=== PATIENT | female | born 1985 | race Caucasian/White ===

== ENCOUNTER 2023-05-27 07:44 | Outpatient (CLI) | payer BC, SELFPAY ==
--- NOTE | ~2023-05-27 | XR_ITS ---
XR chest 2V DATE: 05/27/2023 08:06 INDICATION: Suspected exposure to tuberculosis TECHNIQUE: 2 views COMPARISON: None FINDINGS: Normal heart size. No hilar or mediastinal enlargement. No pulmonary infiltrate or consol idation, pulmonary vascular congestion or pleural effusion or pneumothorax. IMPRESSION: No active cardiopulmonary disease Reviewed, dictated and finalized at location B. S SPECIALIST
== END 2023-05-27 07:45 | disposition home or self-care (01) ==
PROVIDERS: PCP Internal Medicine; Visit Provider Internal Medicine
DX: Z20.1 Contact with and (suspected) exposure to tuberculosis (principal)
CPT/HCPCS: 71046

== ENCOUNTER 2024-10-17 10:10 | Outpatient (CLI) | payer OTHER, SELFPAY ==
--- NOTE | ~2024-10-17 | XR_ITS ---
XR shoulder LT min 2V 10/17/2024 10:38 Indication: Left shoulder pain Procedure: 4 views left shoulder Comparison: No prior studies for comparison. Findings: No fracture, subluxation or dislocation. No significant soft tissue abnormality. No foreign bodies. Impression: 1: No significant bone or joint abnormality. Reviewed, dictated and finalized at location A. Impression: 1: No significant bone or joint abnormality.
--- OUTSIDE RECORDS SUMMARY | 2024-10-17 10:22 | XMS_ITS | Continuity of Care Document ---
Author Organization [email or web address], [facility] [address] Address [address] [place] [address] Assessment No assessment recorded. Plan of Treatment Reminders Order Date Submit Date Provider Last Modified By Organization Details Last Modified Time Details Appointments Any 30 025 09:15AM DWAYNE Templeton Not available Not available Not available Lab None record ed. Referral None record ed. Procedures None record ed. Surgeries None record ed. Imaging XR, should er, 2 or more view 025 10/18/19 25 [facility], [address], [place], [address], 10/17/2024 11:05:29 Medication Orders None record ed. Patient TargetsNo targets recorded. Patient Instructions Encounter Date Encounter Id Patient Instructions Last Modified By Organization Details Last Modified Time 10/17/2024 [id number] Continue to use rest, ice, and otc tylenol/advil for discomfort. Rest shoulder and arm as discussed. Avoid lifting heavy objects. Herb [email or web address] Not available 10/17/2024 10:52:06 Patient wanted t o wait to see ortho, will review xray results first, then order referral or additional imaging as discussed in office. [email or web address] Not available 10/17/2024 10:52:42 Reason for Referral None Reported. Problems Name Problem SNOMED Code Status Onset Date Resolution Date Notes Provider Name and Address Organization Details Recorded Time Abscess 540683846 Completed 05/27/2023 GRIS Eid, [place] [employer] [facility] [email or web address] 01/12/202 4 13:28:52 Low back pain 293635364 Completed 05/27/2023 Rola lyn RMA null, [place] [facility] 4 13:29:08 Vitamin D deficienc y 42198093 Active 2021 Rola Peña an, RMA null, [place] [facility] 4 13:29:23 Migraine 15038083 Active 2020 Rola Peña an, RMA null, [place] [facility] 4 13:29:21 Foot pain 31259168 Completed 05/27/2023 Rola Peña an, RMA null, [place] [facility] 4 13:28:58 Anxiety 94617164 Active 2020 Rola Peña an, RMA null, [place] [facility] 4 13:28:55 Skin lesion 15722902 Completed 05/27/2023 Rola Peña an, RMA null, [place] [facility] 4 13:29:10 Insect bite reaction 980675469 Completed 202205/27/2023 Rola lyn, RMA null, [place] [facility] 4 13:29:01 Pain of left shoulder joint 408571574778 67968 Completed 202205/27/2023 DWAYNE Templeton [address], [address], [address], [facility] 5 10:35:17 Pain of left shoulder joint 038724906061 54512 Active 2024 DWAYNE Templeton [address], [place], [address], [facility] 5 10:35:17 Plain X-ray result abnormal 075750485 Active 2024 DWAYNE Templeton [address], [place], [address] [place] [address] [facility] [employer] 5 10:33:17 Problem Notes None recorded. Medical Equipment None Reported. Allergies Allergen ID Allergen Name Allergen Category Reaction Reaction Severity Criticality Documentation Date Start Date Code Code System Note Provider Name and Address Organization Details Recorded Time 51951 Substance with sulfonami de structure and antibacte rial mechanism of action (substanc e) medicatio n Not available Not available Not available 07/14/2022 14347 8003 SNOMED Not Available [facility] 3 06:49:33 Medications Name Sig Start Date Stop Date Status Note LastModified by Organization Details LastModified Time amoxicillin 500 mg capsule Take 1 capsule every 8 hours by oral route for 7 days. 09/20 completed Not Available Not Available Not Available azithromyci n 250 mg tablet Take 2 TABLET EVERY DAY by oral route for 1 day. then 1 tab a day for 4 days 08/03 completed Not Available Not Available Not Available ibuprofen 800 mg tablet Take 1 tablet 3 times a day by oral route. active Not Available Not Available No t Available Keflex 500 mg capsule Take 1 capsule 4 times a day by oral route for 7 days. 07/24 completed Not Available Not Available Not Available Tubersol 5 tub. unit/0.1 mL intradermal injection solution Inject 0.1 mL by intraderm al route. 09/18 completed Not Available Not Available Not Available sumatriptan 50 mg tablet Take 1 tablet by oral route at earliest onset of headache may repeat in 2 hours but no more than two in 24 hrs 07/30 completed Not Available Not Available Not Available sulfamethox azole 800 mg-trimetho prim 160 mg tablet Take 1 tablet every 12 hours by oral route. active Not Available Not Available No t Available lorazepam 0.5 mg tablet Take 1 tablet twice a day by oral route as needed. 07/30 completed Not Available Not Available Not Available ergocalcife rol (vitamin D2) 1,250 mcg (50,000 unit) capsule Take 1 capsule every week by oral route. 09/18 completed Not Available Not Available Not Available Ubrelvy 50 mg tablet TAKE 1 TAB BY MOUTH AT HEADACHE ONSETAS NEEDED,MA Y REPEAT IN 2 HRS IF PAIN PERSISTS. MAX 4 TAB/24 HRS active Not Available Not Available No t Available Vitals Date Recorded Body height Body mass index (BMI) Body weight Body temperature Respiratory rate Heart rate Oxygen saturation Oxygen saturation in Arterial blood by Pulse oximetry Systolic blood pressure Diastolic blood pressure Provider Name and Address Organization Details Last Updated DateTime 5 162.56 cm 31.9 kg/m2 65994.1 8 g 97.8 [degF] 16 /min 84 /min 98 % 98 % 148 mm[Hg] 72 mm[Hg] Rosemary Olguin [place] [email or web address] 5 10:22:14 Social History Question Answer Notes LastModified by [employer] Details LastModified Time Tobacco Smoking Status Never Smoker Not Available [facility] 07/14/2022 06:41:48 What Is Your Level Of Caffeine Consumption? Moderate [id number] Information not available 07/14/2022 How Much Tobacco Do You Chew? None [id number] Information not available 07/14/2022 In The 14 Days Before Symptom Onset, Have You Had Close Contact With A Laboratory-confirm ed COVID-19 While That Case Was Ill? No [id number] Information not available 07/14/2022 In The 14 Days Before Symptom Onset, Have You Had Close Contact With A Person Who Is Under Investigation For COVID-19 While That Person Was Ill? No [id number] Information not available 07/14/2022 Which Illicit Or Recreational Drugs Have You Used? None [id number] Information not available 07/14/2022 Sex: Female Functional Status Question Answer Note LastModified by [employer] Details LastModified Time What is your level of alcohol consumption? Occasional [id number] Information not available 07/14/2022 Do you or have you ever used smokeless tobacco? 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 Never used electronic cigarettes [id number] Information not available 07/14/2022 Mental Status None recorded. Family History Relationship Description Onset Age of this Age Resolved Age Notes LastModified by Organization Details LastModified Time Mother Hypertensive disorder [id number] Not available 07/14/2022 06:42:11 Mother Diabetes mellitus [id number] Not available 07/14/2022 06:42:11 Mother Asthma [id number] Not available 07/14/2022 06:42:11 Mother Osteoporosis MIGRATION.0 30 [id number] Not available 07/14/2022 06:42:11 Medical History No medical history recorded. Gynecological HistoryNo gynecological history recorded. Obstetrics History GPAL:G 0 P 0 0 0 0 Immunizations Vaccine Type Date Status Note Provider Nam e and Address Organization Details Recorded Time TST-PPD intradermal 4 completed GRIS Wilson, [place] - [facility] [employer] [facility] 05/27/2023 13:31:06 Influenza, split virus, quadrivalent, preservative 0 completed Not Available [facility] 07/14/2022 06:49:23 Influenza, split virus, quadrivalent, PF 2 completed Not Available [facility] 07/14/2022 06:49:23 Influenza, split virus, quadrivalent, PF 1 completed Not Available [facility] 07/14/2022 06:49:23 Influenza, split virus, quadrivalent, PF 8 completed Not Available [facility] 07/14/2022 06:49:23 Influenza, split virus, quadrivalent, preservative 9 completed Not Available [facility] 07/14/2022 06:49:24 Past Encounters Encounter ID Performer Location Encounter Start Date Encounter Closed Date Diagnosis/Indication Diagnosis SNOMED-CT Code Diagnosis ICD10 Code Diagnosis Note [id number] Ethan Dominguez MD [facility] [place] [facility] [address] [place] [address] 09/18/2024 16:09:24 09/18/2024 16:42:44 Adult health examination 992098866 Z00.00 Vitamin D deficiency 347 05957 E55.9 to take otc Migraine 18870678 G43.90 9 she has tried sumatripti n in the past without improvemen t and now taking ubrelvy with good results [id number] Ethan Dominguez MD [facility] [facility] [address] [place] [address] 10/17/2024 10:12:02 10/17/2024 11:00:37 Pain of left shoulder joint 9719982285 8780452 M25.512 Health Concerns Section Related Observation LastModified by Organization Detai ls LastModified Time None Recorded Concern Status LastModified by Organization Details LastModified Time None Recorded Payers Encounter Date Sequence Insurance Name Policy Number Policy Bah Covered Member ID Bah Member ID Guarantor Name 10/17/2024 1 [facility] [id number] Herb Marcano [id number] Jamie Sanchez Notes Date Note Type Note Provider Name and Address Organization Details Recorded Time 10/17/2024 text/html Patient is 38y/o female who is here for left shoulder pain. Patient stats that she has had shoulder pain for the last few years but recently has been having more increased pain and tenderness. She reports some limited ROM at this time. She denies injury, fall, chest pain, abdominal pain, or shortness of breath at this time. OTC-advil/iceLeft shoulder pain - historyLROMlateral reach-pain ALLISON Templeton-Kiya [address] [facility] [facility] [address], [place], [address], [place] [facility] [employer] 10/17/2024 10:53:15 OBGyn Episode No OBEpisode recorded.
--- OUTSIDE RECORDS SUMMARY | 2024-10-17 10:22 | XMS_ITS | Data Portability ---
Author Organization [facility] [place], Main Office Address [address] [place] [address] Assessment No assessment recorded. Plan of Treatment Reminders Order Date Submit Date Provider Last Modified By Organization Details Last Modified Time Details Appointments Any 2024 09:15A DWAYNE Arzate Not available Not available Not available Lab vitamin D, 25-hydro xy, total, serum [address] (Lab), [address] [place], [address], 10/12/2024 10:01:12 lipid panel, serum [email or web address] (Lab), [address] [place], [address], 10/12/2024 10:01:11 CMP, serum or plasma [address] (Lab), [address] [place], [address], 10/12/2024 10:01:12 vitamin D, 25-hydro xy, total, serum 2022 023 [email or web address] [facility] (Lab), [address] [place], [address], 04/13/2023 18:42:16 lipid panel, serum [email or web address] (Lab), [address] [place], [address], 04/18/2023 09:54:49 CMP, serum or plasma 2022 023 [email or web address] [facility] (Lab), [address] [place], [address], 04/18/2023 09:54:49 Referral None recorded . Procedures None recorded . Surgeries None recorded . Imaging XR, shoulder , 2 or more view 2024 025 [facility], [address], [place], [address], 10/17/2024 11:05:29 Medication Orders Ubrelvy 50 mg tablet 2024 025 [id number], [address] [place], [address], 09/18/2024 16:37:15 Patient TargetsNo targets recorded. Patient Instructions Encounter Date Encounter Id Patient Instructions Last Modified By Organization Details Last Modified Time 10/17/2024 [id number] Continue to use rest, ice, and otc tylenol/advil for discomfort. Rest shoulder and arm as discussed. Avoid lifting heavy objects. L Not available 10/17/2024 10:52:06 Patient wanted t o wait to see ortho, will review xray results first, then order referral or additional imaging as discussed in office. [email or web address] Not available 10/17/2024 10:52:42 Reason for Referral None Reported. Results Created Date Observation Date Name Description Value Unit Range Abnormal Flag Note LastModifiedBy Organization Detail LastModifiedTime 05/30/19 24 05/27/2023 XR, chest , 2 view No observ ation record ed. BARCODE Not Available 2023 18:15:22 05/31/19 24 05/27/2023 XR, chest , 2 view No observ ation record ed. [email or web address] Not Available 2023 11:32:52 Result Notes None recorded. Problems Name Problem SNOMED Code Status Onset Date Resolution Date Notes Provider Name and Address Organization Details Recorded Time Abscess 460942999 Completed 05/27/2023 Rola lyn RMA null, [place] [facility] 4 13:28:52 Low back pain 234318316 Completed 05/27/2023 Rola lyn RMA null, [place] [facility] [place] [facility] 4 13:29:08 Vitamin D deficienc y 06733681 Active 2021 Rloa lyn RMA null, [place] [facility] 4 13:29:23 Migraine 17737944 Active 2020 Rola lyn RMA null, [place] [facility] 4 13:29:21 Foot pain 57315837 Completed 05/27/2023 Rola lyn RMA null, [place] [facility] 4 13:28:58 Anxiety 67908762 Active 2020 Rola lyn RMA null, [place] [facility] 4 13:28:55 Skin lesion 86241874 Completed 05/27/2023 Rola lyn RMA null, [place] [facility] 4 13:29:10 Insect bite reaction 928418048 Completed 202205/27/2023 Rola lyn RMA null, [place] [facility] 4 13:29:01 Pain of left shoulder joint 110280434565 22311 Completed 202205/27/2023 DWAYNE Templeton [address], [place], [address], [facility] 5 10:35:17 Pain of left shoulder joint 808040529079 00768 Active 2024 DWAYNE Templeton [address], [place], [address], [place] [facility] 5 10:35:17 Plain X-ray result abnormal 005133965 Active 2024 Mya Rahman, [facility] [address] [facility], [address], [place], [address], [facility] 5 10:33:17 Problem Notes None recorded. Medical Equipment None Reported. Allergies Allergen ID Allergen Name Allergen Category Reaction Reaction Severity Criticality Documentation Date Start Date Code Code System Note Provider Name and Address Organization Details Recorded Time 66967 Substance with sulfonami de structure and antibacte rial mechanism of action (substanc e) medicatio n Not available Not available Not available 07/14/2022 04586 8003 SNOMED Not Available [facility] [...] 1 capsule every week by oral route. 11/30/ 2023 05/06 /2025 completed Not Available Not Available Not Available Ubrelvy 50 mg tablet TAKE 1 TAB BY MOUTH AT HEADACHE ONSETAS NEEDED,MA Y REPEAT IN 2 HRS IF PAIN PERSISTS. MAX 4 TAB/24 HRS active Not Available Not Available No t Available Vitals Date Recorded Body weight Body mass index (BMI) Body height Body temperature Heart rate Oxygen saturation Oxygen saturation in Arterial blood by Pulse oximetry Systolic blood pressure Diastolic blood pressure Provider Name and Address Organization Details Last Updated DateTime 5 02649.9 6 g 32.4 kg/m2 162.56 cm 97.6 [degF] 96 /min 99 % 99 % 142 mm[Hg] 90 mm[Hg] GRIS Eid [employer] 5 16:21:22 Date Recorded Body height Body mass index (BMI) Body weight Body temperature Respiratory rate Heart rate Oxygen saturation Oxygen saturation in Arterial blood by Pulse oximetry Systolic blood pressure Diastolic blood pressure Provider Name and Address Organization Details Last Updated DateTime 5 162.56 cm 31.9 kg/m2 69029.1 8 g 97.8 [degF] 16 /min 84 /min 98 % 98 % 148 mm[Hg] 72 mm[Hg] Rosemary Olguin MA [employer] 5 10:22:14 Date Recorded Body height Body mass index (BMI) Body weight Body temperature Heart rate Oxygen saturation Oxygen saturation in Arterial blood by Pulse oximetry Systolic blood pressure Diastolic blood pressure Provider Name and Address Organization Details Last Updated DateTime 3 162.56 cm 30.9 kg/m2 71966.6 3 g 97.7 [degF] 121 /min 99 % 99 % 118 mm[Hg] 82 mm[Hg] Mere Troy CMA [employer] 3 15:35:50 Date Recorded Body mass index (BMI) Body height Oxygen saturation Oxygen saturation in Arterial blood by Pulse oximetry Heart rate Respiratory rate Body temperature Body weight Systolic blood pressure Diastolic blood pressure Provider Name and Address Organization Details Last Updated DateTime 2 30 kg/m2 162.56 cm 100 % 100 % 88 /min 16 /min 98 [degF] 17678.6 6 g 120 mm[Hg] 80 mm[Hg] Not Available [employer] 3 06:42:58 Date Recorded Body height Body mass index (BMI) Body weight Body temperature Oxygen saturation Oxygen saturation in Arterial blood by Pulse oximetry Heart rate Systolic blood pressure Diastolic blood pressure Provider Name and Address Organization Details Last Updated DateTime 3 162.56 cm 32.3 kg/m2 75383.3 7 g 98 [degF] 98 % 98 % 87 /min 110 mm[Hg] 62 mm[Hg] Rico Guevara CMA [place] [employer] [facility] 3 15:53:01 Social History Question Answer Notes LastModified by [employer] Details LastModified Time Tobacco Smoking Status Never Smoker Not Available [facility] 07/14/[facility]22 06:41:48 What Is Your Level Of Caffeine Consumption? Moderate [id number] Information not available 07/14/2022 How Much Tobacco Do You Chew? None [id number] Information not available 07/14/2022 In The 14 Days Before Symptom Onset, Have You Had Close Contact With A Laboratory-confirm ed COVID-19 While That Case Was Ill? No [id number] Information not available 07/14/2022 In The 14 Days Before Symptom Onset, Have You Had Close Contact With A Person Who Is Under Investigation For COVID-19 While That Person Was Ill? No [id number] Information not available 07/14/2022 Which Illicit Or Recreational Drugs Have You Used? None [id number] Information not available 07/14/2022 Sex: Female Functional Status Question Answer Note LastModified by [employer] Details LastModified Time What is your level of alcohol consumption? Occasional [id number] Information not available 07/14/2022 Do you or have you ever used smokeless tobacco? 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 Never used electronic cigarettes [id number] Information not available 07/14/2022 Mental Status None recorded. Family History Relationship Description Onset Age of this Age Resolved Age Notes LastModified by Organization Details LastModified Time Mother Hypertensive disorder [id number] Not available 07/14/2022 06:42:11 Mother Diabetes mellitus [id number].128 [id number] Not available 07/14/2022 06:42:11 Mother Asthma [id number].156 [id number] Not available 07/14/2022 06:42:11 Mother Osteoporosis MIGRATION.0 30 [id number] Not available 07/14/2022 06:42:11 Medical History No medical history recorded. Gynecological HistoryNo gynecological history recorded. Obstetrics History GPAL:G 0 P 0 0 0 0 Immunizations Vaccine Type Date Status Note Provider Nam e and Address Organization Details Recorded Time TST-PPD intradermal 4 completed GRIS Wilson, [place] [facility] 05/27/2023 13:31:06 Influenza, split virus, quadrivalent, preservative 0 completed Not Available [facility] 07/14/2022 06:49:23 Influenza, split virus, quadrivalent, PF 2 completed Not Available [facility] 07/14/2022 06:49:23 Influenza, split virus, quadrivalent, PF 1 completed Not Available [facility] 07/14/2022 06:49:23 Influenza, split virus, quadrivalent, PF 8 completed Not Available [facility] 07/14/2022 06:49:23 Influenza, split virus, quadrivalent, preservative 9 completed Not Available [facility] 07/14/2022 06:49:24 Past Encounters Encounter ID Performer Location Encounter Start Date Encounter Closed Date Diagnosis/Indication Diagnosis SNOMED-CT Code Diagnosis ICD10 Code Diagnosis Note [id number] MD AMARA Gross[facility] Internal Med [address] [address] 07/30/2020 00:00:00 07/30/2020 15:58:28 [id number] MD AMARA Gross[facility] [address] [address] 03/16/2022 00:00:00 03/16/2022 16:47:32 [id number] MD AMARA Gross[facility] [address] [place] [address] 2022 15:26:19 2022 16:08:44 Insect bite reaction 257179134 T63.481A oral and local antihistam melissa discussed, call if not better in a week [id number] Ethan Dominguez MD [facility] Internal Med [address] [facility] [place] [address] 04/04/2023 15:37:38 04/04/2023 16:16:41 Adult health examination 981466473 Z00.00 Vitamin D deficiency 347 88237 E55.9 to take otc Pain of le ft shoulder joint 2779317885 2647713 M25.512 ice, advil, avoid push ups [id number] Ethan Dominguez MD [facility] Internal Med [address] [facility] [place] [address] 09/18/2024 16:09:24 09/18/2024 16:42:44 Adult health examination 862958187 Z00.00 Vitamin D deficiency 347 52503 E55.9 to take otc Migraine 33930703 G43.90 9 she has tried sumatripti n in the past without improvemen t and now taking ubrelvy with good results [id number] Ethan Dominguez MD [facility] Internal [facility] [address] [facility] [place] [address] 10/17/2024 10:12:02 10/17/2024 11:00:37 Pain of left shoulder joint 6638539956 8556145 M25.512 Health Concerns Section Related Observation LastModified by Organization Detai ls LastModified Time None Recorded Concern Status LastModified by Organization Details LastModified Time None Recorded Advance Directives Directive None Recorded Payers Encounter Date Sequence Insurance Name Policy Number Policy Bah Covered Member ID Bah Member ID Guarantor Name 2022 1 [employer] Benita Marcano [id number] Jamie Sanchez 04/04/2023 1 [employer] SHELLY Marcano [id number] Jamie Sanchez 09/18/2024 1 [employer] [id number] Jamie Marcano [id number] Jamie Sanchez 10/17/2024 1 [employer] [id number] Jamie Marcano [id number] Jamie Sanchez Notes Date Note Type Note Provider Name and Address Organization Details Recorded Time 2022 text/html pt is here today with c/o bug bite for 5 days, has tired otc and it is not helping, says it is very itchyno fever, no pain, just itching Ethan Dominguez MD [address], [address], [place], [address], [employer] 2022 16:06:41 04/04/2023 text/html Pt is here for a nnual physical exam-pt complains of shoulder pain, states it has been going on for about 4 to 6 weeks now , was doing some push ups Migraines- ubrelvy helps a lot, needs many times a monthanxiety- no longer taking medsVit D def- was treated, not on otc, need labs Obesity- has gained some weight Ethan Dominguez MD [address], [place], [address], [employer] 04/04/2023 16:19:07 09/18/2024 text/html Pt is here for a nnual physical exam C/o ear issues, thinks she may be starting of a sinus infection, Has had balance issues as well X 4 daysMigraines- ubrelvy helps a lot, needs many times a monthHas already tried Sumatriptan which did not helpMeds- Ubrelvy 50mg as needed Anxiety- no longer taking medsVit D def- was treated, not on otc, need labs Obesity- has not lost, trying to watch diet Ethan Dominguez MD [address], [address], [place], [address], [employer] 09/18/2024 16:40:10 10/17/2024 text/html Patient is 38y/o female who [...] pain - historyLROMlateral reach-pain [facility] [address] [facility] [address], [place], [address], [facility] [place] [employer] [facility] 10/17/2024 10:53:15 OBGyn Episode No OBEpisode recorded.
== END 2024-10-17 10:11 | disposition home or self-care (01) ==
PROVIDERS: PCP Internal Medicine
DX: M25.512 Pain in left shoulder (principal)
CPT/HCPCS: 73030